=== PATIENT | male | born 1985 | race Caucasian/White ===

== ENCOUNTER → 2016-12-30 | Outpatient (CLI) | payer OTHER ==
[~2016-12-30] MED LIST: AZITHROMYCIN250 MG PO; IBU800 MG PO; NYQUIL OR
--- NOTE | 2016-12-30 11:49 | RADIOLOGY REPORT PS360 ---
FOOT-LT-3 VIEWS HISTORY: LT HEEL PAIN ORDERING PHYSICIAN: Priscilla Turner APRN PATIENT AGE: 31 years COMPARISON: None FINDINGS: No fracture or dislocation. No lytic or blastic change. There is normal mineralization.. The joint spaces are well-preserved. No significant degenerative/arthritic changes. No erosive changes evident. No calcaneal spur apparent. No obvious radio opaque foreign body IMPRESSION: Negative left foot, no acute finding
== END ==
LOC: RAD 10:22
DX: M79.672 Pain in left foot (principal)